=== PATIENT | male | born 1965 | race Caucasian/White ===

== ENCOUNTER 2019-04-03 05:23 | Observation (INO) | payer OTHER ==
[2019-04-02] MEDS: TRANEXAMIC ACID 1GM/100ML(PMX) 100 ML IVPB (06:00)
[2019-04-02] MEDS: CEFAZOLIN 2 GM/50 ML (PMX) 50 ML IVPB (06:00)
[~2019-04-03 05:23] MED LIST: BUPIVACAINE 0.5% (SDV) 30 ML, morphine SULFATE (PF) 8 MG, EPINEPHrine 0.3 MG, KETOROLAC... IRR; DEXAMETHASONE 1 MG TAB PO; GABAPENTIN 300 MG CAP PO
[2019-04-03] MEDS: LACTATED RINGER'S 1,000 ML IV ×3 (06:12→19:07)
[2019-04-03] MEDS: GABAPENTIN 300 MG CAP PO ×2 (06:36→20:46)
[2019-04-03] MEDS: DEXAMETHASONE 1 MG TAB PO (06:36)
[2019-04-03] MEDS: POLYMYXIN/BACITRACIN 1L IRRIG IRR (07:28)
[2019-04-03] MEDS ORDERED: HYDROmorphONE 1 MG/5 ML IV SYRINGE IV (08:00)
[2019-04-03] MEDS ORDERED: METOCLOPRAMIDE 10 MG INJ IV (08:00)
[2019-04-03] MEDS ORDERED: LABETALOL HCL 20MG INJ IV (08:00)
[2019-04-03] MEDS ORDERED: MEPERIDINE 25 MG INJ IV (08:00)
[2019-04-03] MEDS ORDERED: MIDAZOLAM 1 MG/ML 2 ML INJ IV (08:00)
[2019-04-03] MEDS ORDERED: hydrALAzine 20 MG INJ IV (08:00)
[2019-04-03] MEDS ORDERED: EPHEDrine 25 MG/5 ML SYG IV (08:00)
[2019-04-03] MEDS ORDERED: FENTAnyl 50 MCG/ML VIAL IV ×3 (08:00)
[2019-04-03] MEDS ORDERED: OXYCODONE/ACETAMINOPHEN (5/325) TAB PO ×2 (08:00)
[2019-04-03] MEDS ORDERED: NACL 0.9% 3 ML SYG IV (10:00)
[2019-04-03] MEDS ORDERED: HYDROmorphONE 1 MG/ML SYG IV (10:00)
[2019-04-03] MEDS ORDERED: oxyCODONE 5 MG TAB PO ×2 (10:00)
[2019-04-03] MEDS ORDERED: MAGNESIUM HYDROXIDE 30ML CUP PO (10:00)
[2019-04-03] MEDS ORDERED: ONDANSETRON 4 MG INJ IV (10:00)
[2019-04-03] MEDS ORDERED: DIPHENHYDRAMINE 50 MG INJ IV (10:00)
[2019-04-03] MEDS ORDERED: LOPERAMIDE 2 MG CAP PO (10:00)
[2019-04-03] MEDS ORDERED: ZOLPIDEM 5 MG TAB PO (10:00)
[2019-04-03] MEDS: HYDROmorphONE 1 MG/5 ML IV SYRINGE IV ×2 (10:14→10:21)
[2019-04-03] MEDS: DIPHENHYDRAMINE 50 MG INJ IV (10:14)
[2019-04-03] MEDS: ONDANSETRON 4 MG INJ IV (10:15)
[2019-04-03] MEDS: TRANEXAMIC ACID 1GM/100ML(PMX) 100 ML IVPB (10:15)
[2019-04-03] MEDS: ACETAMINOPHEN 500 MG TAB PO ×2 (12:24→18:35)
[2019-04-03] MEDS: DEXAMETHASONE 2 MG TAB PO ×2 (12:24→18:35)
[2019-04-03] MEDS: CEFAZOLIN 1 GM/50 ML (PMX) 50 ML IVPB ×2 (14:44→20:47)
[2019-04-03] MEDS: KETOROLAC 15 MG INJ IV ×2 (14:45→20:47)
[2019-04-03] MEDS: SENNA/DOCUSATE NA (8.6MG/50MG) TAB PO (20:46)
[2019-04-04] MEDS: ACETAMINOPHEN 500 MG TAB PO ×3 (00:29→12:00)
[2019-04-04] MEDS: DEXAMETHASONE 2 MG TAB PO ×2 (00:29→06:21)
[2019-04-04] MEDS: CEFAZOLIN 1 GM/50 ML (PMX) 50 ML IVPB ×2 (06:00→06:20)
[2019-04-04] MEDS: LACTATED RINGER'S 1,000 ML IV (06:00)
[2019-04-04] MEDS: oxyCODONE 5 MG TAB PO (08:32)
[2019-04-04] MEDS: SENNA/DOCUSATE NA (8.6MG/50MG) TAB PO (08:32)
== END 2019-04-04 13:08 | disposition home or self-care (01) ==
LOC: SDS 05:23 → REC 09:39 → MS1 11:23
DX: S42.202P Unspecified fracture of upper end of left humerus, subsequent encounter for fracture with malunion (principal); X58.XXXD Exposure to other specified factors, subsequent encounter
CPT/HCPCS: 24430; 73030; 73060; 86999; 97161